=== PATIENT | male | born 1995 | race Caucasian/White ===

== ENCOUNTER 2018-01-22 22:50 | Emergency (ER) | payer SELFPAY ==
[~2018-01-22] VITALS: Ht 175.3 cm; Wt 79.5 kg
[2018-01-22 22:54] VITALS: TEMP 98
[2018-01-23 05:30] VITALS: BP 129/79; PULSE 87
== END 2018-01-23 05:30 | disposition home or self-care (01) ==
LOC: COL.ER 22:50
DX: F10.129 Alcohol abuse with intoxication, unspecified (principal); Y90.7 Blood alcohol level of 200-239 mg/100 ml
CPT/HCPCS: J7030

== ENCOUNTER 2018-04-11 11:24 | Emergency (ER) | payer OTHER ==
[~2018-04-11] VITALS: Ht 177.8 cm; Wt 79.5 kg
[2018-04-11 11:25] VITALS: BP 128/74; PULSE 86; TEMP 98.3
== END 2018-04-11 12:23 | disposition left against medical advice (07) ==
LOC: COL.ER 11:24
DX: S51.811A Laceration without foreign body of right forearm, initial encounter (principal); Z88.2 Allergy status to sulfonamides; W26.8XXA Contact with other sharp object(s), not elsewhere classified, initial encounter; Y92.009 Unspecified place in unspecified non-institutional (private) residence as the place of occurrence of the external cause